=== PATIENT | male | born 1970 | race Two or more races ===

== ENCOUNTER 2018-03-27 11:44 | Emergency (ER) | payer SELFPAY ==
[~2018-03-27] VITALS: Ht 180.3 cm; Wt 96.0 kg
[2018-03-27 11:48] VITALS: BP 133/89
[2018-03-27 14:19] LABS: CHLORIDE 107 mEq/L (98-107)
[2018-03-27 14:21] LABS: BASOPHILS % 0.6 % (0.0-2.0); EOSINOPHILS % 1.6 % (0.0-5.0); HEMATOCRIT. 47.2 % (42.0-52.0); HEMOGLOBIN. 15.9 g/dL (14.0-18.0); LYMPHOCYTES % 35.9 % (20.0-50.0); MEAN CORPUSCULAR HEMOGLOBIN 29.9 pg (28.0-32.0); MEAN CORPUSCULAR VOLUME 88.9 fL (80.0-94.0); MEAN PLATELET VOLUME 8.8 fl (7.4-10.4); MONOCYTES % 10.6 % (2.0-8.0); NEUTROPHILS % 51.3 % (40.0-76.0); PLATELET 206 x1000/uL (130-400); RED BLOOD CELL COUNT 5.31 mill/uL (4.7-6.1); RED CELL DISTRIBUTION WIDTH 13.6 % (11.6-14.6)
== END 2018-03-27 15:30 | disposition home or self-care (01) ==
LOC: ER 11:44
DX: R25.2 Cramp and spasm (principal); R74.0 Nonspecific elevation of levels of transaminase and lactic acid dehydrogenase [LDH]; R94.5 Abnormal results of liver function studies
CPT/HCPCS: 36415; 93971; 99284